=== PATIENT | female | born 1960 | race Caucasian/White ===

== ENCOUNTER → 2017-09-07 | Outpatient (CLI) | payer OTHER | LOC: BRMIMAGING 13:22 | PROVIDERS: ATTEND Physician Assistant Medical | DX: Z12.31 Encounter for screening mammogram for malignant neoplasm of breast (principal); R10.2 Pelvic and perineal pain; Z80.3 Family history of malignant neoplasm of breast | CPT/HCPCS: 76856-PO ==

== ENCOUNTER → 2017-09-13 | Outpatient (CLI) | payer OTHER | LOC: BRMIMAGING 08:36 | PROVIDERS: ATTEND Physician Assistant Medical | DX: R92.8 Other abnormal and inconclusive findings on diagnostic imaging of breast (principal); Z80.3 Family history of malignant neoplasm of breast ==